=== PATIENT | female | born 1945 | race Two or more races ===

== ENCOUNTER → 2016-11-05 | Outpatient (CLI) | payer OTHER ==
[2016-11-05 09:51] LABS: Basophils # (auto) 0.1 uL; Basophils % (auto) 0.9 % (0.0-2.0); Eosinophils # (auto) 0.4 uL; Eosinophils % (auto) 7.3 % (0.0-7.0); Hematocrit 43.6 % (36.0-46.0); Hemoglobin 14.5 g/dL (12.2-16.2); Lymphocytes # (auto) 2.2 uL; Lymphocytes % (auto) 36.6 % (10.0-50.0); Mean Corpuscular Hemoglobin 30.8 pg (28.0-32.0); Mean Corpuscular Hgb Conc. 33.2 g/dL (32.0-36.0); Mean Corpuscular Volume 92.6 fL (80.0-100.0); Mean Platelet Volume 9.1 fL (7.4-10.4); Monocytes # (auto) 0.5 uL; Monocytes % (auto) 7.6 % (0.0-12.0); Neutrophils # (auto) 2.9 uL; Neutrophils % (auto) 47.6 % (37.0-80.0); Platelet Count (auto) 252 10^3/uL (140-450); Red Cell Distribution Width 13.5 % (11.6-16.0)
[2016-11-05 10:44] LABS: Urine Bilirubin Negative (Negative); Urine Color Yellow (Yellow); Urine Glucose Normal (Normal); Urine Ketone Negative (Negative); Urine Nitrite Negative (Negative); Urine RBC 3 /hpf (0 - 4); Urine Squamous Epithelial Cell FEW /hpf (<5); Urine Urobilinogen Normal (Negative); Urine pH 5.5 (5.0-8.0)
[2016-11-05 10:47] LABS: Urine Blood 1+ /uL (Negative)
[2016-11-05 11:13] LABS: BUN/Creatinine Ratio 21.8; Bilirubin, Total 0.5 mg/dL (0.2-1.0); Calcium 9.1 mg/dL (8.5-10.1); Potassium 4.2 mmol/L (3.5-5.1); Total Protein 7.7 g/dL (6.4-8.2)
== END | disposition home or self-care (01) ==
LOC: LAB 08:58
PROVIDERS: ATTEND Internal Medicine
DX: Z00.00 Encounter for general adult medical examination without abnormal findings (principal); E78.5 Hyperlipidemia, unspecified; I10 Essential (primary) hypertension; E55.9 Vitamin D deficiency, unspecified
CPT/HCPCS: 36415; 80053; 80061; 81001; 82306; 83036; 84443; 85025

== ENCOUNTER → 2017-02-05 | Outpatient (CLI) | payer OTHER ==
[2017-02-05 11:25] LABS: Uric Acid 7.5 mg/dL (2.6-6.0)
== END | disposition home or self-care (01) ==
LOC: LAB 10:15
DX: Z79.899 Other long term (current) drug therapy (principal); I10 Essential (primary) hypertension; M10.00 Idiopathic gout, unspecified site; M25.50 Pain in unspecified joint; D64.9 Anemia, unspecified
CPT/HCPCS: 36415; 84550; 85652; 86141; 86431

== ENCOUNTER → 2019-04-18 | Outpatient (CLI) | payer OTHER ==
[2019-04-18 09:20] LABS: Basophils # (auto) 0.1 uL; Basophils % (auto) 1.2 % (0.0-2.0); Eosinophils # (auto) 0.4 uL; Eosinophils % (auto) 6.9 % (0.0-7.0); Hematocrit 43.6 % (36.0-46.0); Hemoglobin 14.6 g/dL (12.2-16.2); Lymphocytes # (auto) 1.7 uL; Lymphocytes % (auto) 32.6 % (10.0-50.0); Mean Corpuscular Hemoglobin 31.6 pg (28.0-32.0); Mean Corpuscular Hgb Conc. 33.5 g/dL (32.0-36.0); Mean Corpuscular Volume 94.4 fL (80.0-100.0); Monocytes # (auto) 0.4 uL; Monocytes % (auto) 8.1 % (0.0-12.0); Neutrophils # (auto) 2.6 uL; Neutrophils % (auto) 51.2 % (37.0-80.0); Platelet Count (auto) 215 10^3/uL (140-450); Red Blood Cells 4.62 10^6/uL (4.0-5.20); Red Cell Distribution Width 12.9 % (11.8-14.3); White Blood Cell 5.2 10^3/uL (4.4-10.8)
[2019-04-18 09:45] LABS: Calcium 9.2 mg/dL (8.5-10.1); Potassium 4.5 mmol/L (3.5-5.1)
[2019-04-18 09:50] LABS: BUN/Creatinine Ratio 16.5; Bilirubin, Total 0.4 mg/dL (0.2-1.0); Total Protein 7.8 g/dL (6.4-8.2)
== END | disposition home or self-care (01) ==
LOC: LAB 09:01
PROVIDERS: ATTEND Physician Assistant
DX: E55.9 Vitamin D deficiency, unspecified (principal); I12.9 Hypertensive chronic kidney disease with stage 1 through stage 4 chronic kidney disease, or unspecified chronic kidney disease; N18.3 Chronic kidney disease, stage 3 (moderate); M81.0 Age-related osteoporosis without current pathological fracture; M17.11 Unilateral primary osteoarthritis, right knee
CPT/HCPCS: 36415; 80053; 80061; 82306; 85025

== ENCOUNTER → 2021-02-05 | Outpatient (CLI) | payer OTHER ==
[2021-02-05 10:24] LABS: Basophils # (auto) 0.1 10 ^3/uL (0-0.2); Basophils % (auto) 1.4 % (0.0-2.0); Eosinophils # (auto) 0.3 10 ^3/uL (0-0.8); Eosinophils % (auto) 5.1 % (0.0-7.0); Hematocrit 41.1 % (36.0-46.0); Lymphocytes # (auto) 2.2 10 ^3/uL (0.4-5.4); Lymphocytes % (auto) 38.9 % (10.0-50.0); Mean Corpuscular Hemoglobin 31.5 pg (28.0-32.0); Mean Corpuscular Hgb Conc. 34.1 g/dL (32.0-36.0); Mean Corpuscular Volume 92.3 fL (80.0-100.0); Monocytes # (auto) 0.5 10 ^3/uL (0-1.3); Neutrophils # (auto) 2.7 10 ^3/uL (1.6-8.6); Neutrophils % (auto) 46.6 % (37.0-80.0); Nucleated Red Blood Cells % 0.1 %; Red Blood Cells 4.46 10^6/uL (4.0-5.20); Red Cell Distribution Width 13.1 % (11.8-14.3); White Blood Cell 5.7 10^3/uL (4.4-10.8)
[2021-02-05 11:17] LABS: Albumin 3.7 g/dL (3.4-5.0); Calcium 8.9 mg/dL (8.5-10.1); Potassium 4.5 mmol/L (3.5-5.1)
[2021-02-05 11:23] LABS: BUN/Creatinine Ratio 18.4; Bilirubin, Total 0.5 mg/dL (0.2-1.0); Total Protein 7.5 g/dL (6.4-8.2)
== END | disposition home or self-care (01) ==
LOC: LAB 10:07
PROVIDERS: ATTEND Nurse Practitioner Family
DX: I12.9 Hypertensive chronic kidney disease with stage 1 through stage 4 chronic kidney disease, or unspecified chronic kidney disease (principal); N18.30 Chronic kidney disease, stage 3 unspecified; E78.5 Hyperlipidemia, unspecified
CPT/HCPCS: 36415; 80053; 80061; 85025

== ENCOUNTER → 2021-12-10 | Outpatient (CLI) | payer OTHER ==
[~2021-12-10] VITALS: Ht 167.6 cm; Wt 92.5 kg
[~2021-12-10] MED LIST: ADENOSINE 78 MG in GIVE UN-DILUTED 0 ML IV STA
== END | disposition home or self-care (01) ==
LOC: XYW 09:11
PROVIDERS: ATTEND Internal Medicine
DX: Z01.810 Encounter for preprocedural cardiovascular examination (principal); Z68.31 Body mass index [BMI] 31.0-31.9, adult; I10 Essential (primary) hypertension; N63.10 Unspecified lump in the right breast, unspecified quadrant
CPT/HCPCS: 78452; 93017; A9500; J0153

== ENCOUNTER → 2022-03-12 | Outpatient (CLI) | payer OTHER ==
[2022-03-12 08:08] LABS: Basophils # (auto) 0.1 10 ^3/uL (0-0.2); Basophils % (auto) 1.3 % (0.0-2.0); Eosinophils # (auto) 0.3 10 ^3/uL (0-0.8); Eosinophils % (auto) 5.2 % (0.0-7.0); Hematocrit 41.3 % (36.0-46.0); Hemoglobin 13.6 g/dL (12.2-16.2); Lymphocytes # (auto) 2.9 10 ^3/uL (0.4-5.4); Lymphocytes % (auto) 46.1 % (10.0-50.0); Mean Corpuscular Hemoglobin 30.8 pg (28.0-32.0); Mean Corpuscular Volume 93.4 fL (80.0-100.0); Monocytes # (auto) 0.4 10 ^3/uL (0-1.3); Neutrophils # (auto) 2.5 10 ^3/uL (1.6-8.6); Neutrophils % (auto) 40.4 % (37.0-80.0); Nucleated Red Blood Cells % 0.1 %; Red Blood Cells 4.42 10^6/uL (4.0-5.20); White Blood Cell 6.3 10^3/uL (4.4-10.8)
[2022-03-12 08:46] LABS: Albumin 3.7 g/dL (3.4-5.0); Calcium 9.1 mg/dL (8.5-10.1); Potassium 4.5 mmol/L (3.5-5.1)
[2022-03-12 08:50] LABS: BUN/Creatinine Ratio 18.1; Bilirubin, Total 0.5 mg/dL (0.2-1.0)
== END | disposition home or self-care (01) ==
LOC: LAB 07:54
PROVIDERS: ATTEND Nurse Practitioner Family
DX: Z00.00 Encounter for general adult medical examination without abnormal findings (principal); I12.9 Hypertensive chronic kidney disease with stage 1 through stage 4 chronic kidney disease, or unspecified chronic kidney disease; N18.30 Chronic kidney disease, stage 3 unspecified; E55.9 Vitamin D deficiency, unspecified
CPT/HCPCS: 36415; 80053; 80061; 82306; 85025

== ENCOUNTER → 2022-04-13 | Outpatient (CLI) | payer OTHER ==
[2022-04-13 08:42] LABS: Basophils # (auto) 0.1 10 ^3/uL (0-0.2); Basophils % (auto) 1.3 % (0.0-2.0); Eosinophils # (auto) 0.4 10 ^3/uL (0-0.8); Eosinophils % (auto) 5.1 % (0.0-7.0); Hematocrit 43.7 % (36.0-46.0); Hemoglobin 14.3 g/dL (12.2-16.2); Lymphocytes # (auto) 3.2 10 ^3/uL (0.4-5.4); Lymphocytes % (auto) 45.9 % (10.0-50.0); Mean Corpuscular Hemoglobin 30.6 pg (28.0-32.0); Mean Corpuscular Hgb Conc. 32.7 g/dL (32.0-36.0); Mean Corpuscular Volume 93.5 fL (80.0-100.0); Monocytes # (auto) 0.5 10 ^3/uL (0-1.3); Monocytes % (auto) 7.6 % (0.0-12.0); Neutrophils # (auto) 2.8 10 ^3/uL (1.6-8.6); Neutrophils % (auto) 40.1 % (37.0-80.0); Nucleated Red Blood Cells % 0.1 %; Red Blood Cells 4.67 10^6/uL (4.0-5.20); Red Cell Distribution Width 13.2 % (11.8-14.3); White Blood Cell 6.9 10^3/uL (4.4-10.8)
[2022-04-13 08:47] LABS: Urine Bacteria FEW /hpf (None Seen); Urine Blood 1+ /uL (Negative); Urine Specific Gravity 1.013 (1.001-1.035); Urine WBC 71 /hpf (0 - 5)
[2022-04-13 09:00] LABS: INR 0.97 (0.9-1.15); Partial Thromboplastin Time 30.4 sec (24.6-33.4)
[2022-04-13 09:19] LABS: Calcium 8.8 mg/dL (8.5-10.1); Potassium 4.2 mmol/L (3.5-5.1)
[2022-04-13 09:23] LABS: BUN/Creatinine Ratio 15.6; Bilirubin, Total 0.5 mg/dL (0.2-1.0); Total Protein 7.1 g/dL (6.4-8.2)
== END | disposition home or self-care (01) ==
LOC: LAB 08:23
PROVIDERS: ATTEND Surgery
DX: Z01.812 Encounter for preprocedural laboratory examination (principal); C50.911 Malignant neoplasm of unspecified site of right female breast
CPT/HCPCS: 36415; 80053; 81001; 85025; 85610; 85730

== ENCOUNTER → 2022-09-25 | Outpatient (CLI) | payer OTHER ==
[2022-09-25 09:52] LABS: Basophils # (auto) 0.1 10 ^3/uL (0-0.2); Basophils % (auto) 1.2 % (0.0-2.0); Eosinophils # (auto) 0.6 10 ^3/uL (0-0.8); Eosinophils % (auto) 7.5 % (0.0-7.0); Hematocrit 43.8 % (36.0-46.0); Hemoglobin 14.5 g/dL (12.2-16.2); Lymphocytes # (auto) 3.6 10 ^3/uL (0.4-5.4); Lymphocytes % (auto) 45.6 % (10.0-50.0); Mean Corpuscular Hemoglobin 31.2 pg (28.0-32.0); Mean Corpuscular Hgb Conc. 33.2 g/dL (32.0-36.0); Mean Corpuscular Volume 93.8 fL (80.0-100.0); Monocytes # (auto) 0.6 10 ^3/uL (0-1.3); Neutrophils # (auto) 2.9 10 ^3/uL (1.6-8.6); Neutrophils % (auto) 37.7 % (37.0-80.0); Nucleated Red Blood Cells % 0.2 %; Red Blood Cells 4.67 10^6/uL (4.0-5.20); Red Cell Distribution Width 12.7 % (11.8-14.3); White Blood Cell 7.8 10^3/uL (4.4-10.8)
[2022-09-25 10:40] LABS: Potassium 4.1 mmol/L (3.5-5.1)
[2022-09-25 10:49] LABS: Albumin 3.8 g/dL (3.4-5.0); BUN/Creatinine Ratio 20.5; Bilirubin, Total 0.5 mg/dL (0.2-1.0); Calcium 9.1 mg/dL (8.5-10.1); Magnesium 2.5 mg/dL (1.6-2.6); Total Protein 7.5 g/dL (6.4-8.2)
== END | disposition home or self-care (01) ==
LOC: LAB 09:26
PROVIDERS: ATTEND Internal Medicine
DX: C50.911 Malignant neoplasm of unspecified site of right female breast (principal)
CPT/HCPCS: 36415; 80053; 82306; 83615; 83735; 85025; 86300

== ENCOUNTER → 2022-11-05 | Outpatient (CLI) | payer OTHER | END | disposition home or self-care (01) | LOC: XYW 12:27 | PROVIDERS: ATTEND Nurse Practitioner Family | DX: I10 Essential (primary) hypertension (principal) | CPT/HCPCS: 93306 ==

== ENCOUNTER 2023-09-15 16:27 | Inpatient (IN) | payer OTHER ==
[~2023-09-15] VITALS: Ht 167.6 cm; Wt 90.4 kg
[2023-09-15 19:53] LABS: Basophils # (auto) 0.1 10 ^3/uL (0-0.2); Basophils % (auto) 0.8 % (0.0-2.0); Eosinophils # (auto) 0.1 10 ^3/uL (0-0.8); Eosinophils % (auto) 0.8 % (0.0-7.0); Hemoglobin 13.1 g/dL (12.2-16.2); Lymphocytes # (auto) 2.6 10 ^3/uL (0.4-5.4); Lymphocytes % (auto) 22.2 % (10.0-50.0); Mean Corpuscular Hemoglobin 29.7 pg (28.0-32.0); Mean Corpuscular Hgb Conc. 31.8 g/dL (32.0-36.0); Mean Corpuscular Volume 93.4 fL (80.0-100.0); Monocytes # (auto) 0.7 10 ^3/uL (0-1.3); Monocytes % (auto) 6.1 % (0.0-12.0); Neutrophils # (auto) 8.2 10 ^3/uL (1.6-8.6); Neutrophils % (auto) 70.1 % (37.0-80.0); Nucleated Red Blood Cells % 0.1 %; Red Blood Cells 4.39 10^6/uL (4.0-5.20); Red Cell Distribution Width 13.2 % (11.8-14.3); White Blood Cell 11.7 10^3/uL (4.4-10.8)
[2023-09-15 19:58] LABS: Chloride 109 mmol/L (98-107); Potassium 4.2 mmol/L (3.5-5.1); Sodium 138 mmol/L (136-145)
[2023-09-15 19:59] LABS: Anion Gap 9 (5-15); Carbon Dioxide 20 mmol/L (20-30)
[2023-09-15 20:00] LABS: Calcium 10.6 mg/dL (8.5-10.1)
[2023-09-15 20:04] LABS: BUN/Creatinine Ratio 13.5 (10.0-20.0); Blood Urea Nitrogen 20 mg/dL (9-23); Glucose 115 mg/dL (74-106)
[2023-09-15] MEDS: IOHEXOL 350 MG/ML 100ML IJ ONE (20:45)
[2023-09-15] MEDS: VANCOMYCIN 1GM/200ML 200 ML IV ONE (20:45)
[2023-09-15] MEDS: MORPHINE SULFATE 4 MG/ML SYR/VIAL IV ONE (20:46)
[2023-09-15] MEDS: PIPERACILLIN-TAZOB 3.375GM 100 ML IV ONE (21:29)
[2023-09-15] MEDS ORDERED: HYDROcodone-ACET 5/325MG TAB PO PRN (23:30)
[2023-09-15] MEDS ORDERED: ACETAMINOPHEN 325 MG TAB PO PRN (23:30)
[2023-09-15] MEDS ORDERED: ONDANSETRON HCL 4 MG/2 ML VIAL IV PRN (23:30)
[2023-09-16 03:14] VITALS: PULSE 84; RESP 18; O2SAT 98
[2023-09-16] MEDS: PIPERACILLIN-TAZOB 3.375GM 100 ML IV SCH (05:49)
[2023-09-16 06:17] LABS: Basophils # (auto) 0.1 10 ^3/uL (0-0.2); Basophils % (auto) 0.6 % (0.0-2.0); Eosinophils # (auto) 0.2 10 ^3/uL (0-0.8); Hematocrit 35.3 % (36.0-46.0); Hemoglobin 11.3 g/dL (12.2-16.2); Lymphocytes # (auto) 1.7 10 ^3/uL (0.4-5.4); Lymphocytes % (auto) 18.9 % (10.0-50.0); Mean Corpuscular Hemoglobin 30.3 pg (28.0-32.0); Mean Corpuscular Hgb Conc. 32.1 g/dL (32.0-36.0); Mean Corpuscular Volume 94.3 fL (80.0-100.0); Monocytes # (auto) 0.8 10 ^3/uL (0-1.3); Monocytes % (auto) 9.2 % (0.0-12.0); Neutrophils # (auto) 6.1 10 ^3/uL (1.6-8.6); Neutrophils % (auto) 69.3 % (37.0-80.0); Red Blood Cells 3.74 10^6/uL (4.0-5.20); Red Cell Distribution Width 12.8 % (11.8-14.3); White Blood Cell 8.8 10^3/uL (4.4-10.8)
[2023-09-16 06:31] LABS: Anion Gap 8 (5-15); Calcium 9.5 mg/dL (8.5-10.1); Carbon Dioxide 21 mmol/L (20-30); Chloride 109 mmol/L (98-107); Potassium 4.5 mmol/L (3.5-5.1); Sodium 138 mmol/L (136-145)
[2023-09-16 06:37] LABS: BUN/Creatinine Ratio 13.7 (10.0-20.0); Blood Urea Nitrogen 22 mg/dL (9-23); Glucose 119 mg/dL (74-106)
[2023-09-16 08:48] LABS: INR 1.08 (0.9-1.15); Partial Thromboplastin Time 35.1 SEC (24.5-34.5); Prothrombin Time 11.3 sec (9.3-11.8)
[2023-09-16 08:57] VITALS: BP 108/57; PULSE 57; RESP 18; TEMP 97.6; O2SAT 95
[2023-09-16] MEDS: amLODIPine BESYLATE 5 MG TAB PO SCH (09:08)
[2023-09-16] MEDS: LINEZOLID 600MG/300ML 300 ML IV SCH (09:09)
[2023-09-16] MEDS: ENOXAPARIN SOD 40 MG/0.4 ML SYRINGE SC SCH (09:09)
[2023-09-16 12:47] VITALS: BP 114/56; PULSE 72; RESP 16; TEMP 98.1; O2SAT 92
[2023-09-16 17:47] VITALS: BP 116/68; PULSE 75; RESP 17; TEMP 98.1; O2SAT 94
[2023-09-16] MEDS: MORPHINE SULFATE INJ 2 MG/ml SYRG IV PRN (18:29)
[2023-09-16 19:52] LABS: Urine Bacteria FEW /hpf (None Seen); Urine Blood TRACE /uL (Negative); Urine Budding Yeast OCCASIONAL /hpf (None Seen); Urine Clarity CLOUDY (Clear); Urine Color Yellow (Yellow); Urine Protein, UAD TRACE (Negative); Urine Urobilinogen Normal (Negative); Urine WBC 23 /hpf (0 - 5); Urine pH 5.5 (5.0-8.0)
[2023-09-16 20:00] VITALS: PULSE 70; RESP 18
[2023-09-16 22:00] VITALS: BP 132/69; PULSE 70; RESP 18; TEMP 99; O2SAT 95
[2023-09-17] VITALS (7 sets, daily range): BP systolic 115–159; BP diastolic 62–90; PULSE 58–75; RESP 14–18; TEMP 98–98.3; O2SAT 92–97
[2023-09-17] MEDS: SODIUM CHLORIDE 0.9% 1,000 ML IV SCH (00:06)
[2023-09-17 07:16] LABS: Basophils # (auto) 0.1 10 ^3/uL (0-0.2); Basophils % (auto) 0.7 % (0.0-2.0); Eosinophils # (auto) 0.4 10 ^3/uL (0-0.8); Eosinophils % (auto) 4.8 % (0.0-7.0); Hematocrit 33.8 % (36.0-46.0); Hemoglobin 11.2 g/dL (12.2-16.2); Lymphocytes # (auto) 1.8 10 ^3/uL (0.4-5.4); Lymphocytes % (auto) 23.7 % (10.0-50.0); Mean Corpuscular Hemoglobin 30.6 pg (28.0-32.0); Mean Corpuscular Hgb Conc. 33.2 g/dL (32.0-36.0); Mean Corpuscular Volume 92.3 fL (80.0-100.0); Monocytes # (auto) 0.8 10 ^3/uL (0-1.3); Neutrophils # (auto) 4.7 10 ^3/uL (1.6-8.6); Neutrophils % (auto) 60.8 % (37.0-80.0); Nucleated Red Blood Cells % 0.2 %; Red Blood Cells 3.67 10^6/uL (4.0-5.20); Red Cell Distribution Width 12.7 % (11.8-14.3); White Blood Cell 7.7 10^3/uL (4.4-10.8)
[2023-09-17 07:30] LABS: Alanine Aminotransferase 43 U/L (7-40); Albumin 3.6 g/dL (3.2-4.8); Alkaline Phosphatase 99 U/L (46-116); Anion Gap 6 (5-15); Aspartate Aminotransferase 52 U/L (13-40); Bilirubin, Total 0.4 mg/dL (0.2-1.0); Blood Urea Nitrogen 18 mg/dL (9-23); Calcium 9.1 mg/dL (8.7-10.4); Carbon Dioxide 22 mmol/L (20-30); Chloride 111 mmol/L (98-107); Glucose 109 mg/dL (74-106); Magnesium 1.9 mg/dL (1.6-2.6); Potassium 4.2 mmol/L (3.5-5.1); Sodium 139 mmol/L (136-145); Total Protein 6.3 g/dL (5.7-8.2)
[2023-09-17] MEDS: amLODIPine BESYLATE 5 MG TAB PO SCH (20:57)
[2023-09-17] MEDS ORDERED: amLODIPine BESYLATE 5 MG TAB PO SCH (21:00)
[2023-09-18 04:58] VITALS: BP 111/58; PULSE 66; RESP 16; TEMP 97.9; O2SAT 94
[2023-09-18 06:46] LABS: Basophils # (auto) 0.1 10 ^3/uL (0-0.2); Basophils % (auto) 0.9 % (0.0-2.0); Eosinophils # (auto) 0.3 10 ^3/uL (0-0.8); Eosinophils % (auto) 3.6 % (0.0-7.0); Hematocrit 32.9 % (36.0-46.0); Hemoglobin 10.7 g/dL (12.2-16.2); Lymphocytes # (auto) 1.7 10 ^3/uL (0.4-5.4); Lymphocytes % (auto) 24.4 % (10.0-50.0); Mean Corpuscular Hemoglobin 30.5 pg (28.0-32.0); Mean Corpuscular Hgb Conc. 32.6 g/dL (32.0-36.0); Mean Corpuscular Volume 93.3 fL (80.0-100.0); Monocytes # (auto) 0.9 10 ^3/uL (0-1.3); Monocytes % (auto) 12.5 % (0.0-12.0); Neutrophils # (auto) 4.2 10 ^3/uL (1.6-8.6); Neutrophils % (auto) 58.6 % (37.0-80.0); Nucleated Red Blood Cells % 0.2 %; Red Blood Cells 3.53 10^6/uL (4.0-5.20); Red Cell Distribution Width 12.8 % (11.8-14.3); White Blood Cell 7.1 10^3/uL (4.4-10.8)
[2023-09-18 06:57] LABS: Chloride 100 mmol/L (98-107); Potassium 3.8 mmol/L (3.5-5.1)
[2023-09-18 06:58] LABS: Anion Gap 9 (5-15); Carbon Dioxide 20 mmol/L (20-30)
[2023-09-18 06:59] LABS: Calcium 7.6 mg/dL (8.7-10.4)
[2023-09-18 07:03] LABS: BUN/Creatinine Ratio 9.6 (10.0-20.0); Blood Urea Nitrogen 13 mg/dL (9-23)
[2023-09-18 07:04] LABS: Magnesium 1.9 mg/dL (1.6-2.6)
[2023-09-18 07:06] LABS: Sodium 129 mmol/L (136-145)
[2023-09-18 07:07] LABS: Glucose 490 mg/dL (74-106)
[2023-09-18] MEDS ORDERED: GADOTERATE MEG 10 MMOL/20ml INJ (0.5MMOL/ml) IV ONE (07:26)
[2023-09-18 08:39] VITALS: BP 139/64; PULSE 69; RESP 16; TEMP 98.3; O2SAT 98
[2023-09-18 13:00] VITALS: BP 119/60; PULSE 66; RESP 14; TEMP 98.1; O2SAT 95
[2023-09-18] MEDS ORDERED: CEPH500C PO (13:09)
[2023-09-18] MEDS ORDERED: LINE1TAB6 PO (13:09)
[2023-09-18] MEDS: cefTRIAXone 1GM/50ML D5W 50 ML IV SCH (13:23)
[2023-09-18 14:27] VITALS: BP 126/66; TEMP 36.8
[2023-09-18] MEDS ORDERED: HYDR-4902 PO (14:58)
[2023-09-18] MEDS ORDERED: amLODIPine BESYLATE 5 MG TAB PO SCH (21:00)
== END 2023-09-18 15:30 | disposition home or self-care (01) | DRG 872 ==
LOC: ER 16:27 → OVERFLOW 23:34 → CENTRAL 23:34
PROVIDERS: ADMIT Internal Medicine; ATTEND Internal Medicine
DX: A41.9 Sepsis, unspecified organism (principal); N17.9 Acute kidney failure, unspecified; N39.0 Urinary tract infection, site not specified; N61.0 Mastitis without abscess; I10 Essential (primary) hypertension; K80.20 Calculus of gallbladder without cholecystitis without obstruction; N28.1 Cyst of kidney, acquired; E83.52 Hypercalcemia; N60.01 Solitary cyst of right breast; Z85.3 Personal history of malignant neoplasm of breast
CPT/HCPCS: 36415; 71260; 76642; 80048; 80053; 81001; 82040; 82962; 83735; 85025; 85610; 85730; 86300; 87040; 87081; 87086; 87205; 96365; 96367; 96375; 97163; G0378; J2543

== ENCOUNTER 2023-11-25 14:53 | Inpatient (IN) | payer OTHER ==
[~2023-11-25] VITALS: Ht 165.1 cm; Wt 86.9 kg
[~2023-11-25 14:53] MED LIST changes: -ADENOSINE 78 MG in GIVE UN-DILUTED 0 ML IV STA; +CEPH500C PO; +LINE1TAB6 PO
[2023-11-25 16:37] LABS: Mean Corpuscular Hemoglobin 27.9 pg (28.0-32.0)
[2023-11-25 16:38] LABS: Hematocrit 23.3 % (36.0-46.0); Mean Corpuscular Hgb Conc. 27.9 g/dL (32.0-36.0); Mean Corpuscular Volume 100.2 fL (80.0-100.0); Red Blood Cells 2.33 10^6/uL (4.0-5.20); White Blood Cell 25.5 10^3/uL (4.4-10.8)
[2023-11-25] MEDS: PIPERACILLIN-TAZO 4.5GM 100 ML IV ONE (16:44)
[2023-11-25] MEDS: SODIUM CHLORIDE 0.9% 2,000 ML IV ONE (16:44)
[2023-11-25 16:53] LABS: Alanine Aminotransferase 49 U/L (7-40); Alkaline Phosphatase 148 U/L (46-116); Anion Gap 11 (5-15); Blood Urea Nitrogen 77 mg/dL (9-23); Calcium 8.4 mg/dL (8.7-10.4); Carbon Dioxide 17 mmol/L (20-30); Chloride 107 mmol/L (98-107); Glucose 112 mg/dL (74-106); Sodium 135 mmol/L (136-145)
[2023-11-25 16:54] LABS: Albumin 3.1 g/dL (3.2-4.8); Aspartate Aminotransferase 106 U/L (13-40); BUN/Creatinine Ratio 35.5 (10.0-20.0); Bilirubin, Total 0.4 mg/dL (0.2-1.0); Total Protein 5.4 g/dL (5.7-8.2)
[2023-11-25 16:57] LABS: INR 1.09 (0.9-1.15); Prothrombin Time 11.5 sec (9.3-11.8)
[2023-11-25 17:10] LABS: Potassium 6.3 mmol/L (3.5-5.1)
[2023-11-25 17:13] LABS: Basophils % (manual) 0 (0.0-2.0); Blast Cells 0; Eosinophils % (manual) 0 (0-7); Hemoglobin 6.5 g/dL (12.2-16.2); Metamyelocytes % 0; Myelocytes % 0; Promyelocytes % 0; Reactive Lymphocytes 0
[2023-11-25 17:18] LABS: Lactic Acid w/Reflex 2.5 mmol/L (0.4-2.0)
[2023-11-25 17:19] VITALS: RESP 26; O2SAT 96
[2023-11-25] MEDS: ALBUTEROL SULF 2.5 MG/0.5ML(0.5%) NEB SOLN ONE (17:45)
[2023-11-25] MEDS: ALBUTEROL SULF 2.5 MG/0.5ML(0.5%) NEB SOLN NEB ONE (17:45)
[2023-11-25] MEDS: CALCIUM GLUC 1,000mg/50ml-NS 50 ML IV ONE (18:01)
[2023-11-25] MEDS: SODIUM BICARB 8.4% 50Meq/50ml SYR Vial IV ONE (18:02)
[2023-11-25] MEDS: InsuLIN REG 1unit/0.01ml Soln (100units/ml) IV ONE (18:10)
[2023-11-25] MEDS: DEXTROSE (50%) 50ML SYRG IV ONE (18:28)
[2023-11-25] MEDS: FUROSEMIDE 40 MG/4 ML VIAL IV ONE (18:30)
[2023-11-25] MEDS: SODIUM CHLORIDE 0.9% 1,000 ML IV SCH (18:30)
[2023-11-25] MEDS ORDERED: ACETAMINOPHEN 325 MG TAB PO PRN (18:30)
[2023-11-25] MEDS ORDERED: MORPHINE SULFATE 4 MG/ML SYR/VIAL IV PRN (18:30)
[2023-11-25] MEDS ORDERED: VANCOMYCIN PER PHARMACY 0 MG IV SCH (18:30)
[2023-11-25] MEDS: SODIUM ZIRCONIUM CYCL 10 GM PAK PO ONE (18:30)
[2023-11-25] MEDS ORDERED: ONDANSETRON HCL 4 MG/2 ML VIAL IV PRN (18:30)
[2023-11-25 18:45] LABS: Anisocytosis Slight; Band Neutrophils % (manual) 7; Lymphocytes % (manual) 16 (10.0-50.0); Monocytes % (manual) 7 (0-12); Platelet Estimate Increased
[2023-11-25] MEDS: VANCOMYCIN 1GM/200ML 200 ML IV ONE (19:09)
[2023-11-25] MEDS: HYDROcodone-ACET 5/325MG TAB PO PRN (19:10)
[2023-11-25 19:30] VITALS: PULSE 103; RESP 18; O2SAT 100
[2023-11-25 20:55] VITALS: BP 89/44; PULSE 100; RESP 27; TEMP 99
[2023-11-25 21:05] VITALS: BP 86/43; PULSE 101; RESP 26; TEMP 99
[2023-11-25 21:20] VITALS: BP 81/40; PULSE 99; RESP 24; TEMP 98
[2023-11-25 23:30] VITALS: BP 87/45; PULSE 80; RESP 22; TEMP 99
[2023-11-26] VITALS (8 sets, daily range): BP systolic 71–110; BP diastolic 36–69; PULSE 68–100; RESP 13–21; TEMP 97.8–98.6; O2SAT 96–100
[2023-11-26] MEDS: VANCOMYCIN 1GM/200ML 200 ML IV ONE (00:14)
[2023-11-26 05:41] LABS: Eosinophils # (auto) 0.1 10 ^3/uL (0-0.8)
[2023-11-26 05:43] LABS: Basophils # (auto) 0.1 10 ^3/uL (0-0.2); Basophils % (auto) 0.3 % (0.0-2.0); Eosinophils % (auto) 0.4 % (0.0-7.0); Hematocrit 25.1 % (36.0-46.0); Hemoglobin 8.1 g/dL (12.2-16.2); Lymphocytes # (auto) 3.8 10 ^3/uL (0.4-5.4); Lymphocytes % (auto) 15.2 % (10.0-50.0); Mean Corpuscular Hemoglobin 28.1 pg (28.0-32.0); Mean Corpuscular Hgb Conc. 32.1 g/dL (32.0-36.0); Mean Corpuscular Volume 87.6 fL (80.0-100.0); Monocytes # (auto) 1.9 10 ^3/uL (0-1.3); Monocytes % (auto) 7.4 % (0.0-12.0); Neutrophils # (auto) 19.1 10 ^3/uL (1.6-8.6); Neutrophils % (auto) 76.7 % (37.0-80.0); Red Blood Cells 2.87 10^6/uL (4.0-5.20); Red Cell Distribution Width 16.6 % (11.8-14.3); White Blood Cell 24.9 10^3/uL (4.4-10.8)
[2023-11-26 05:55] LABS: Chloride 110 mmol/L (98-107); Potassium 4.7 mmol/L (3.5-5.1); Sodium 138 mmol/L (136-145)
[2023-11-26 05:56] LABS: Anion Gap 10 (5-15); Calcium 8.2 mg/dL (8.5-10.1); Carbon Dioxide 18 mmol/L (20-30)
[2023-11-26 06:01] LABS: BUN/Creatinine Ratio 31.2 (10.0-20.0); Glucose 103 mg/dL (74-106)
[2023-11-26 06:04] LABS: Blood Urea Nitrogen 58 mg/dL (9-23)
[2023-11-26 07:06] LABS: Urine Bacteria FEW /hpf (None Seen); Urine Blood Negative /uL (Negative); Urine Clarity Clear (Clear); Urine Protein, UAD Negative (Negative); Urine Urobilinogen Normal (Negative); Urine WBC <1 /hpf (0 - 5)
[2023-11-26 07:10] LABS: Urine Color Straw (Yellow)
[2023-11-26 12:18] LABS: Phosphorus 5.6 mg/dL (2.4-5.1)
[2023-11-26 12:41] LABS: Creatinine, Urine 24.21 mg/dL (30.0-125.0)
[2023-11-26] MEDS: SODIUM BICARB 50mEq/50ml Vial 50 ML in SOD CHL 0.45% 1,000 ML IV SCH (12:59)
[2023-11-26] MEDS: MORPHINE SULF 15mg ER tab PO ONE (13:01)
[2023-11-26] MEDS ORDERED: AMLO1TAB22 PO (18:25)
[2023-11-26] MEDS: CEFEPIME HCL-DEXTROSE 50 ML IV SCH (19:15)
[2023-11-26 19:24] LABS: Urine Bacteria None Seen /hpf (None Seen)
[2023-11-26 19:39] LABS: Urine Amorphous Crystal FEW /hpf (None Seen); Urine Blood 1+ /uL (Negative); Urine Clarity Clear (Clear); Urine Color Yellow (Yellow); Urine Mucus FEW (None Seen); Urine Protein, UAD TRACE (Negative); Urine Specific Gravity 1.017 (1.001-1.035); Urine Urobilinogen 2 mg/dL (Negative); Urine WBC 2 /hpf (0 - 5)
[2023-11-26] MEDS: MORPHINE SULF 15mg ER tab PO SCH (21:39)
[2023-11-27] VITALS (9 sets, daily range): BP systolic 50–101; BP diastolic 39–60; PULSE 65–104; RESP 17–20; TEMP 98.1–98.9; O2SAT 89–100
[2023-11-27] MEDS: VANCOMYCIN 1GM/200ML 200 ML IV SCH (14:52)
[2023-11-28] VITALS (12 sets, daily range): BP systolic 89–127; BP diastolic 41–59; PULSE 66–101; RESP 16–20; TEMP 97.5–101.2; O2SAT 96–99
[2023-11-28] MEDS: ACETAMINOPHEN 325 MG TAB PO PRN (01:02)
[2023-11-28 05:47] LABS: Anion Gap 7 (5-15); Calcium 8.3 mg/dL (8.7-10.4); Carbon Dioxide 22 mmol/L (20-30); Chloride 104 mmol/L (98-107); Potassium 4.6 mmol/L (3.5-5.1)
[2023-11-28 05:48] LABS: Basophils # (auto) 0.1 10 ^3/uL (0-0.2); Eosinophils # (auto) 0.4 10 ^3/uL (0-0.8); Lymphocytes # (auto) 2.7 10 ^3/uL (0.4-5.4); Monocytes # (auto) 1.3 10 ^3/uL (0-1.3); Neutrophils # (auto) 20.8 10 ^3/uL (1.6-8.6); Neutrophils % (auto) 82.3 % (37.0-80.0); White Blood Cell 25.3 10^3/uL (4.4-10.8)
[2023-11-28 05:50] LABS: Basophils % (auto) 0.4 % (0.0-2.0); Eosinophils % (auto) 1.6 % (0.0-7.0); Hematocrit 21.4 % (36.0-46.0); Lymphocytes % (auto) 10.6 % (10.0-50.0); Mean Corpuscular Hemoglobin 28.8 pg (28.0-32.0); Mean Corpuscular Hgb Conc. 32.3 g/dL (32.0-36.0); Mean Corpuscular Volume 89.2 fL (80.0-100.0); Monocytes % (auto) 5.1 % (0.0-12.0); Red Cell Distribution Width 16.3 % (11.8-14.3)
[2023-11-28 05:53] LABS: BUN/Creatinine Ratio 26.8 (10.0-20.0); Glucose 102 mg/dL (74-106)
[2023-11-28 05:59] LABS: Blood Urea Nitrogen 37 mg/dL (9-23); Sodium 133 mmol/L (136-145)
[2023-11-28 06:18] LABS: Hemoglobin 6.9 g/dL (12.2-16.2)
[2023-11-28] MEDS: SODIUM CHLORIDE 0.9% 1,000 ML IV SCH (12:13)
[2023-11-28] MEDS: CEFEPIME HCL-DEXTROSE 50 ML IV SCH (18:17)
[2023-11-29] VITALS (8 sets, daily range): BP systolic 97–142; BP diastolic 45–63; PULSE 71–98; RESP 16–20; TEMP 98–99.1; O2SAT 96–99
[2023-11-29 05:48] LABS: Basophils # (auto) 0.1 10 ^3/uL (0-0.2); Hemoglobin 7.9 g/dL (12.2-16.2); Monocytes # (auto) 1.1 10 ^3/uL (0-1.3); Neutrophils # (auto) 15.6 10 ^3/uL (1.6-8.6); White Blood Cell 19.5 10^3/uL (4.4-10.8)
[2023-11-29 05:50] LABS: Basophils % (auto) 0.3 % (0.0-2.0); Eosinophils # (auto) 0.4 10 ^3/uL (0-0.8); Hematocrit 24.7 % (36.0-46.0); Lymphocytes # (auto) 2.4 10 ^3/uL (0.4-5.4); Lymphocytes % (auto) 12.1 % (10.0-50.0); Mean Corpuscular Hemoglobin 28.6 pg (28.0-32.0); Mean Corpuscular Hgb Conc. 31.8 g/dL (32.0-36.0); Mean Corpuscular Volume 89.8 fL (80.0-100.0); Monocytes % (auto) 5.6 % (0.0-12.0); Red Blood Cells 2.75 10^6/uL (4.0-5.20); Red Cell Distribution Width 16.2 % (11.8-14.3)
[2023-11-29 06:03] LABS: Alanine Aminotransferase 22 U/L (7-40); Albumin 2.1 g/dL (3.2-4.8); Alkaline Phosphatase 195 U/L (46-116); Anion Gap 8 (5-15); Aspartate Aminotransferase 37 U/L (13-40); BUN/Creatinine Ratio 27.9 (10.0-20.0); Bilirubin, Total 0.8 mg/dL (0.2-1.0); Blood Urea Nitrogen 31 mg/dL (9-23); Calcium 8.3 mg/dL (8.7-10.4); Carbon Dioxide 21 mmol/L (20-30); Chloride 104 mmol/L (98-107); Glucose 102 mg/dL (74-106); Potassium 4.7 mmol/L (3.5-5.1); Sodium 133 mmol/L (136-145); Total Protein 4.1 g/dL (5.7-8.2)
[2023-11-30 01:00] VITALS: BP 126/48; PULSE 88; RESP 18; TEMP 98.7; O2SAT 98
[2023-11-30 05:00] VITALS: BP 113/42; PULSE 81; RESP 18; TEMP 98.1; O2SAT 99
[2023-11-30 08:00] VITALS: BP 111/47; PULSE 66; PULSE 76; RESP 18; TEMP 98.2; O2SAT 98
[2023-11-30 09:00] VITALS: BP 90/43; PULSE 76; RESP 18; TEMP 98.2; O2SAT 98
[2023-11-30 10:00] LABS: Hematocrit 27.2 % (36.0-46.0); Hemoglobin 8.5 g/dL (12.2-16.2); Mean Corpuscular Hemoglobin 28.4 pg (28.0-32.0); Mean Corpuscular Hgb Conc. 31.3 g/dL (32.0-36.0); Mean Corpuscular Volume 90.8 fL (80.0-100.0); Red Cell Distribution Width 16.2 % (11.8-14.3); White Blood Cell 16.8 10^3/uL (4.4-10.8)
[2023-11-30] MEDS: LACTULOSE 20Gm/30ML SOLN PO ONE (10:02)
[2023-11-30 10:04] LABS: Chloride 107 mmol/L (98-107); Potassium 4.6 mmol/L (3.5-5.1); Sodium 132 mmol/L (136-145)
[2023-11-30 10:05] LABS: Anion Gap 5 (5-15); Calcium 8.5 mg/dL (8.5-10.1); Carbon Dioxide 20 mmol/L (20-30)
[2023-11-30 10:10] LABS: BUN/Creatinine Ratio 24.5 (10.0-20.0); Blood Urea Nitrogen 25 mg/dL (9-23); Glucose 115 mg/dL (74-106)
[2023-11-30 10:30] LABS: Basophils % (manual) 0 (0.0-2.0); Blast Cells 0; Metamyelocytes % 0; Promyelocytes % 0; Reactive Lymphocytes 0
[2023-11-30 11:56] LABS: Band Neutrophils % (manual) 1; Eosinophils % (manual) 1 (0-7); Lymphocytes % (manual) 9 (10.0-50.0); Monocytes % (manual) 6 (0-12); Myelocytes % 2; Platelet Estimate Adequate
[2023-11-30 12:39] VITALS: BP 114/46; PULSE 84; RESP 18; TEMP 97.6; O2SAT 98
[2023-11-30 13:00] VITALS: BP 114/46; PULSE 84; RESP 18; TEMP 97.6; O2SAT 98
== END 2023-11-30 14:40 | disposition hospice, home (50) | DRG 862 ==
LOC: EDBD 14:53 → ER 14:53 → TELE 18:34 → TELE-WESTW 11-26 15:34
PROVIDERS: ADMIT Internal Medicine Geriatric Medicine; ATTEND Emergency Medicine
PROC: 30233N1 Transfusion of Nonautologous Red Blood Cells into Peripheral Vein, Percutaneous Approach (ICD-10-PCS; principal; 2023-11-26)
DX: T81.49XA Infection following a procedure, other surgical site, initial encounter (principal); A41.9 Sepsis, unspecified organism; R65.21 Severe sepsis with septic shock; N17.9 Acute kidney failure, unspecified; N39.0 Urinary tract infection, site not specified; D64.9 Anemia, unspecified; E87.5 Hyperkalemia; N18.9 Chronic kidney disease, unspecified; I12.9 Hypertensive chronic kidney disease with stage 1 through stage 4 chronic kidney disease, or unspecified chronic kidney disease; Y83.8 Other surgical procedures as the cause of abnormal reaction of the patient, or of later complication, without mention of misadventure at the time of the procedure; Z66 Do not resuscitate; Z85.3 Personal history of malignant neoplasm of breast; Z79.2 Long term (current) use of antibiotics; Z79.899 Other long term (current) drug therapy; Z92.21 Personal history of antineoplastic chemotherapy; Z91.199 Patient's noncompliance with other medical treatment and regimen due to unspecified reason; Y92.89 Other specified places as the place of occurrence of the external cause
CPT/HCPCS: 36415; 71250; 76775; 80048; 80053; 80202; 81001; 82140; 82306; 82565; 82570; 82962; 83605; 83735; 83970; 84100; 84156; 84300; 84484; 85007; 85025; 85027; 85610; 86850; 86900; 86901; 86920; 87040; 87086; 94640; 96365; 96375; G0378; J1815; J2543